=== PATIENT | male | born 2000 | race Asian ===

== ENCOUNTER 2024-08-01 22:05 | Emergency (ER) | payer BC, SELFPAY ==
--- NOTE | ~2024-08-01 | CT_ITS ---
Non-contrast CT scan of the Abdomen and Pelvis Clinical indication: Left inguinal pain Technique: 2.5 mm axial scans were obtained through the abdomen and pelvis without intravenous or or al contrast. Dose reduction technique was used on this scan by utilizing automated exposure control a nd iterative reconstruction technique. The dose-length product (DLP) was 214.22 mGy-cm. Findings: Images through the lung bases reveal no abnormalities. There is no evidence of renal or ureteral calculi. The kidneys and the ureters are nondilated. The liver, spleen, pancreas, gallbladder, and adrenals appear normal. There is no aortic aneurysm. There is no evidence of bowel obstruction. Images through the pelvis were performed. There is no evidence of ascites or lymphadenopathy. Urinary bladder unremarkable. No pelvic mass seen. Impression: No significant abnormality seen. Reviewed, dictated and finalized at [facility]. S SALES COUNTERPERSON Impression: No significant abnormality seen.
--- NOTE | ~2024-08-01 | US_ITS ---
Testicular ultrasound with doppler. Indication: Left testicular pain. Technique: Real-time sonography the scrotum was performed. Color flow Doppler and Doppler spectral an alysis were performed. Findings: The testes are homogeneous in echotexture bilaterally. There is no evidence of an intrates ticular mass. The right testis measures 3.6 x 1.8 x 2.4 cm and the left 4.0 x 1.7 x 2.4 cm. There is color-flow seen to both testes. Arterial and venous spectral waveforms are seen in both testes. There is no sonographic evidence of torsion. The head of the epididymis is visualized bilaterally and is within normal limits. Impression: Unremarkable exam. No evidence of torsion. Reviewed, dictated and finalized at location M. TERER HELPER Impression: Unremarkable exam. No evidence of torsion.
[2024-08-01 22:06] VITALS: BP 140/78; PULSE 97; RESP 13; TEMP 36.7; O2SAT 99
[2024-08-01 22:43] LABS: Add Urine Microscopic? YES; Appearance Urine Cloudy (Clear); Bacteria Urine None Seen /hpf; Bilirubin Urine Negative (Negative); Blood Urine Negative (Negative); Color Urine Yellow (Yellow); Glucose Urine UA Negative (Negative); Ketones Urine Negative (Negative); Leukocyte Esterase Ur Negative LEU/UL (Negative); Nitrate Urine Negative (Negative); Non Pathogenic Casts 0-2; Protein Urine Negative (Negative); RBC Urine 0-2 /hpf (0-2); Specific Grav Ur 1.019 (1.001-1.035); Squamous Epithelial Cell Urine None Seen /hpf (Few); Urobilinogen Urine 0.2 mg/dL (<2.0); WBC Urine 0-5 /hpf (0-3)
--- NOTE | 2024-08-02 03:07 | PC.NURSE ---
pt to imaging. unable to obtain labs at this time
[2024-08-02 03:51] LABS: Chlamydia trachomatis NOT DETECTED (NOT DETECTE); Neisseria gonorrhoeae PCR NOT DETECTED (NOT DETECTE)
[2024-08-02 04:09] LABS: Basophils Absolute Auto 0.1 K/mm3 (0.0-0.1); Basophils Percent Auto 0.8 % (0.2-1.2); Eosinophils Absolute Auto 0.7 K/mm3 (0-0.3); Eosinophils Percent Auto 8.5 % (0-4.4); Hematocrit 42.8 % (42.0-52.0); Hemoglobin 15.1 g/dL (14.0-18.0); Immature Granulocyte Absolute 0.02 K/mm3 (0.00-0.031); Immature Granulocyte Percent A 0.2 % (0-0.5); Lymphocytes Percent Auto 27.8 % (18.3-44.2); Mean Corpuscular HGB Conc 35.3 g/dl (32-36); Mean Corpuscular Hemoglobin 29.4 pg (26-34); Mean Corpuscular Volume 83.3 fl (80-100); Mean Platelet Volume 9.7 fl (7.4-10.4); Monocytes Absolute Auto 0.7 K/mm3 (0.1-0.6); Monocytes Percent Auto 8.5 % (2.6-8.5); Neutrophils Absolute Auto 4.5 K/mm3 (1.3-6.7); Neutrophils Percent Auto 54.2 % (45.5-73.1); Platelet Count Result 230 k/mm3 (150-375); Red Blood Count 5.14 M/mm3 (4.6-6.20); Red Cell Distribution Width 12.2 % (11.5-14.5); White Blood Count 8.3 K/mm3 (4.5-10.0)
[2024-08-02 04:25] LABS: Alanine Aminotransferase 32 U/L (6-50); Albumin Level 4.8 g/dL (3.5-5.1); Alkaline Phosphatase 73 U/L (38-126); Anion Gap 7 mmol/L (4-12); Aspartate Amino Transferase 41 U/L (17-59); Bilirubin,Total 0.6 mg/dL (0.2-1.3); Blood Urea Nitrogen 10 mg/dL (9-20); Carbon Dioxide 30 mmol/L (22-30); Chloride 103 mmol/L (98-107); Estimated CRCL calculation 113 ml/min; Estimated Glomerular Filt Rate > 60; Glucose 109 mg/dL (65-110); Lipase 78 U/L (23-300); Potassium 3.7 mmol/L (3.4-5.0); Sodium 140 mmol/L (137-145)
--- NOTE | 2024-08-02 05:04 | ED.GENADULT ---
HPI - General Adult General Chief complaint: Urogenital-Male Stated complaint: COVID test +, sharp pain in testicle Time Seen by Provider: 08/02/24 02:40 History of Present Illness HPI narrative: patient is a 24-year-old gentleman presents emergency department chief complaint of left testicle pain. Patient reports that he has pain that radiates into his left testicle into his lower leg the patient reports no penile discharge denies dysuria denies trauma Review of Systems Review of Systems: A 10 system review of systems was completed on the patient and is negative except for what is stated in the HPI. Nursing and ancillary documentation was reviewed. Exam Narrative: GENERAL: Well-appearing, well-nourished, and in no acute distress. HEAD: Normocephalic, atraumatic. EYES: PERRLA and EOMI. ENT: Nares clear, no rhinorrhea or epistaxis. Mucous membranes moist. NECK: Supple. CHEST: Clear to auscultation. No respiratory distress. HEART: Regular rate and rhythm. No murmur heard. Normal peripheral pulses. ABDOMEN: Soft, nontender, nondistended, normal active bowel sounds. EXTREMITIES: Normal range of motion. No edema. SKIN: Warm, dry, no rash. NEURO: No focal deficits. Alert and oriented x3. PSYCH: Normal mood and affect. Course Vital Signs Vital signs: Vital Signs Temperature 36.7 C 08/01/24 22:06 Pulse Rate 97 08/01/24 22:06 Respiratory Rate 13 08/01/24 22:06 Blood Pressure 140/78 08/01/24 22:06 Pulse Oximetry 99 08/01/24 22:06 Oxygen Delivery Room Air 08/01/24 22:06 Temperature 36.7 C 08/01/24 22:06 Pulse Rate 97 08/01/24 22:06 Respiratory Rate 13 08/01/24 22:06 Blood Pressure 140/78 08/01/24 22:06 Pulse Oximetry 99 08/01/24 22:06 Oxygen Delivery Room Air 08/01/24 22:06 Medical Decision Making [facility] Narrative Medical decision making narrative: differential diagnosis includes testicular torsion, epididymitis, orchitis, hernia chlamydia and gonorrhea were negative urinalysis showed no evidence UTI CT scan of the abdomen pelvis showed no acute abnormality ultrasound of the scrotum showed no evidence of torsion no evidence of epididymal orchitis Vital Signs Vital Signs: Vital Signs Temperature 36.7 C 08/01/24 22:06 Pulse Rate 97 08/01/24 22:06 Respiratory Rate 13 08/01/24 22:06 Blood Pressure 140/78 08/01/24 22:06 Pulse Oximetry 99 08/01/24 22:06 Oxygen Delivery Room Air 08/01/24 22:06 Temperature 36.7 C 08/01/24 22:06 Pulse Rate 97 08/01/24 22:06 Respiratory Rate 13 08/01/24 22:06 Blood Pressure 140/78 08/01/24 22:06 Pulse Oximetry 99 08/01/24 22:06 Oxygen Delivery Room Air 08/01/24 22:06 Lab Data 08/02/24 03:53 08/02/24 03:53 Labs: Lab Results 08/01/24 08/02/24 Range/Units 22:34 03:53 WBC 8.3 (4.5-10.0) K/mm3 RBC 5.14 (4.6-6.20) M/mm3 Hgb 15.1 (14.0-18.0) g/dL Hct 42.8 (42.0-52.0) % MCV 83.3 (80-100) fl MCH 29.4 (26-34) pg MCHC 35.3 (32-36) g/dl RDW 12.2 (11.5-14.5) % Plt Count 230 (150-375) k/mm3 MPV 9.7 (7.4-10.4) fl Immature Gran % (Auto) 0.2 (0-0.5) % Neut % (Auto) 54.2 (45.5-73.1) % Lymph % (Auto) 27.8 (18.3-44.2) % [place] % (Auto) 8.5 (2.6-8.5) % Eos % (Auto) 8.5 H (0-4.4) % Baso % (Auto) 0.8 (0.2-1.2) % Lymph # (Auto) 2.30 (0.9-3.2) K/mm3 [place] # (Auto) 0.7 H (0.1-0.6) K/mm3 Eos # (Auto) 0.7 H (0-0.3) K/mm3 Baso # (Auto) 0.1 (0.0-0.1) K/mm3 Abs Immat Gran (auto) 0.02 (0.00-0.031) K/mm3 Absolute Neuts (auto) 4.5 (1.3-6.7) K/mm3 Absolute Nucleated RBC 0.000 (0.0-0.012) K/mm3 Nucleated RBC % 0.0 (0.0-0.2) % Sodium 140 (137-145) mmol/L Potassium 3.7 (3.4-5.0) mmol/L Chloride 103 (98-107) mmol/L Carbon Dioxide 30 (22-30) mmol/L Anion Gap 7 (4-12) mmol/L BUN 10 (9-20) mg/dL Creatinine 0.80 (0.7-1.3) mg/dL Estim Creat Clear Calc 113 ml/min Estimated GFR > 60 (59 - ) Glucose 109 (65-110) mg/dL Calcium 9.0 (8.4-10.2) mg/dL Total Bilirubin 0.6 (0.2-1.3) mg/dL AST 41 (17-59) U/L ALT 32 (6-50) U/L Alkaline Phosphatase 73 (38-126) U/L Total Protein 8.0 (6.3-8.2) g/dL Albumin 4.8 (3.5-5.1) g/dL Lipase 78 (23-300) U/L Urine Color Yellow (Yellow) Urine Appearance Cloudy H (Clear) Urine pH 6.0 (5.0-9.0) Ur Specific [place] 1.019 (1.001-1.035) Urine Protein Negative (Negative) mg/dL Urine Glucose (UA) Negative (Negative) mg/dL Urine Ketones Negative (Negative) mg/dL Ur Blood (Man) Negative (Negative) Urine Nitrate Negative (Negative) Urine Bilirubin Negative (Negative) Urine Urobilinogen 0.2 (<2.0) mg/dL Leukocyte Esterase Rfl Negative (Negative) ANASTASIYA/UL Urine RBC 0-2 (0-2) /hpf Urine WBC 0-5 (0-3) /hpf Ur Squamous Epith Cells None seen (Few) /hpf Urine Bacteria None seen /hpf Urine Casts 0-2 C. trachomatis (PCR) Not detected (NOT DETECTE) N. gonorrhoeae (PCR) Not detected (NOT DETECTE) Discharge Plan Discharge Clinical Impression: Left testicular pain Patient Disposition: Home, Self-Care Condition: Stable Instructions: Antibiotic Form, Testicle Pain (ED) Additional Instructions: the ultrasound showed no evidence of a testicular torsion. Please try to wear supportive underwear and elevate the scrotum when possible. Follow-up/Referrals: Shaheen Palmer MD [Physician] - PHYSICIAN,BOAT AND PLANT UTILITY SUPERVISOR [Primary Care Provider] - Time of Disposition: 05:37
[2024-08-02 05:42] VITALS: BP 132/76; PULSE 92; RESP 15; O2SAT 99
== END 2024-08-02 05:44 | disposition home or self-care (01) ==
PROVIDERS: Emergency Provider Emergency Medicine
DX: N50.812 Left testicular pain (principal)
CPT/HCPCS: 36415; 74176; 76870; 80053; 81001; 83690; 85025; 87491; 87591; 93976; 99284

== ENCOUNTER 2025-03-08 10:42 | Outpatient (CLI) | payer BC, SELFPAY ==
--- NOTE | ~2025-03-08 | XR_ITS ---
XR abdomen/kub 1V Ordering provider: Jennifer Kelly APRN History: . K59.00 - Constipation, unspecified . Comparison: None. FINDINGS: BOWEL: Nonobstructive bowel gas pattern. Fecal material is seen in both sides of the colon which may indicate constipation. ORGANOMEGALY: None. SIGNIFICANT PATHOLOGIC CALCIFICATIONS: None. OTHER: No free air is seen under the diaphragm. IMPRESSION: NO ACUTE ABDOMINAL FINDINGS. Possible constipation. Reviewed, dictated and finalized at location A.
--- OUTSIDE RECORDS SUMMARY | 2025-03-08 10:47 | XMS_ITS | Clinical Summary ---
Author Organization [facility] Address [address] [place] [address] Care Team Providers Care Commercial Drafter Name Role Phone Jennifer Kelly ALIZE-REMOTE SENSING ENGINEER Primary Care Provider + Source Comments [facility],non-owned Affiliates and Associated Physician Practices is amultiple site organization consisting of ambulatory clinics and hospital sitesin [place], [place], [place] and [place]. This disclosure is being madepursuant to the Care Everywhere program and may not contain all information available regarding this patient. Last updated 18.[facility] Social History Tobacco Use Types Packs/Day Years Used Date Smoking Tobacco: Never Assessed Sex and Gender Information Value Date Recorded Sex Assigned at Not on file Legal Sex Male 11:32 AM CDT Gender Identity Not on file Sexual Orientation Not on file Plan of Treatment Upcoming Encounters Date Type Department Care Team (Late st Contact Info) Description 03/16/2025 1:40 PM CDT Office Visit [facility] - Urology [address] [place] [address] [address] [place] [id number] Nico Garcia PA [address] [place] [phone] Health Maintenance Due Date Last Done Comments HIV SCREENING 2016 HPV VACCINE (1 - Male 3-dose series) 2016 MENINGOCOCCAL (Group B) VACC INE SHARED DECISION-MAKING (1 of 2 - Standard) 2017 HEPATITIS C SCREENING 06/08/2019 DTAP/TDAP/TD VACCINES (1 - Tdap) 2020 HEPATITIS B VACCINE (1 of 3 - 19+ 3-dose series) 2020 COVID-19 VACCINE (1 - 2023-2 5 season) 2024 DEPRESSION SCREENING 08/31/2024 INFLUENZA VACCINE (#1) 2025 ZOSTER VACCINE (1 of 2) 2051 HIB VACCINE Aged Out No longer eligi ble based on patient's age to complete this topic MENINGOCOCCAL GROUPS A/C/Y/W VACCINE Aged Out No longer eligible b ased on patient's age to complete this topic PNEUMOCOCCAL VACCINE Aged Out No long er eligible based on patient's age to complete this topic Insurance [facility] Care Teams Commercial Drafter Relationship Specialty Start Date End Date Jennifer Kelly APRN-SIVAN [address] [place] [id number] PCP - General Nurse Practitioner 02/27/25
--- OUTSIDE RECORDS SUMMARY | 2025-03-08 10:47 | XMS_ITS | Clinical Summary ---
Author Organization [address] Address [address] [place] [phone] Care Team Providers Care Station Jailer Name Role Phone No, Physician Primary Care Provider [phone] Allergies No known active allergies Medications No known medications Active Problems No known active problems Immunizations Immunization Administration Dates Next Due Pfizer SARS-CoV-2 Monovalent Vaccination (12+ Yrs) PURPLE 12/18/2020,11/27/2020 Social History Tobacco Use Types Packs/Day Years Used Date Smoking Tobacco: Never Assessed Sex and Gender Information Value Date Recorded Sex Assigned at Not on file Legal Sex Male 9:14 AM CDT Gender Identity Not on file Sexual Orientation Not on file Obstetrics History Last Filed Vital Signs Vital Sign Reading Time Taken Comments Blood Pressure 108/72 07/03/2023 12:36 PM CDT Pulse 89 07/03/2023 12:36 PM CDT Temperature 36.9 C (98.5 F) 07/03/2023 12:36 PM CDT Respiratory Rate 16 07/03/2023 12:36 PM CDT Oxygen Saturation 98% 07/03/2023 12:36 PM CDT Inhaled Oxygen Concentration - - Weight 66.2 kg (146 lb) 07/03/2023 12:36 PM CDT Height 165.1 cm (5' 5) 07/03/2023 12:36 PM CDT Body Mass Index 24.3 07/03/2023 12:36 PM CDT Plan of Treatment Health Maintenance Due Date Last Done Comments Depression Screening 2001 Hepatitis C Screening 2001 DTaP/Tdap/Td Vaccine (1 - Tdap) 2012 Varicella Vaccines (1 of 2 - 13+ 2-dose series) 2014 HPV Vaccines (1 - Male 3-dos e series) 2016 Hepatitis B Screening 2019 Regular Well Visit/Exam 18-64 2019 Meningococcal B Vaccine (2 o f 2 - Trumenba SCDM 2-dose series) 10/12/2020 04/11/2020 Covid-19 Vaccine (3 - 2023-2 5 season) 2024 12/18/2020, 11/27/2020 Influenza Vaccine (#1) 2025 07/23/2021 Pneumococcal vaccine <65 Aged Out No longer eligible based on patient's age to complete this topic Insurance [facility] ACCESS Member Subscriber Plan / Payer (Ef fective 2018-Present) Name:Bradly Velazquez Relation to Subscriber:Child Name:Cecile Velazquez Date of :1967 (Home) Address: [address] [place], [place] [address]karla [place], [place] [address] Payer ID:[id number] (NAIC) Type:CHANO CASTELLANO Address: [facility] [id number] [place] [id number] Care Teams Station Jailer Relationship Specialty Start Date End Date No, Physician PCP - General 07/03/23
--- OUTSIDE RECORDS SUMMARY | 2025-03-08 10:47 | XMS_ITS | Referral Summary ---
Author Organization [address] Address [address] [place] [phone] Care Team Providers Care Lock Expert Name Role Phone No, Physician Primary Care Provider [phone] Allergies No known active allergies Medications No [...] on file Sexual Orientation Not on file Last Filed Vital Signs Vital Sign Reading [...] 07/03/2023 12:36 PM CDT Plan of Treatment Not on file Insurance [employer] ACCESS Care Teams Lock Expert Relationship Specialty Start Date End Date No, Physician PCP - General 07/03/23
[2025-03-08 11:03] LABS: Add Urine Microscopic? YES; Appearance Urine Clear (Clear); Glucose Urine UA Negative (Negative); Leukocyte Esterase Ur Negative LEU/UL (Negative); Nitrate Urine Negative (Negative); Non Pathogenic Casts 0-2; Specific Grav Ur 1.021 (1.001-1.035)
== END 2025-03-08 10:43 | disposition home or self-care (01) ==
PROVIDERS: PCP Nurse Practitioner Family; Visit Provider Nurse Practitioner Family
DX: K59.00 Constipation, unspecified (principal); R39.15 Urgency of urination; R30.0 Dysuria
CPT/HCPCS: 74018; 81001; 87086